=== PATIENT | female | born 2000 | race Hispanic/Latino ===

== ENCOUNTER 2024-06-06 05:32 | Inpatient (IN) | payer MEDICAID, OTHER, SELFPAY ==
[2024-06-06 06:29] VITALS: BMI 35.4
[2024-06-06] MEDS ORDERED: hydrALAZINE 20 MG/ML VIAL SLOW IVP PRN (07:37)
[2024-06-06] MEDS ORDERED: Ondansetron PF 4 MG/2 ML Vial IVP PRN (07:37)
[2024-06-06] MEDS ORDERED: Famotidine/PF 20 mg/2ml Vial SLOW IVP PRN (07:37)
[2024-06-06] MEDS ORDERED: Bicitra 30 ML UDCUP PO PRN (07:37)
[2024-06-06] MEDS ORDERED: Promethazine HCl 25 MG/ML VIAL IM PRN ×2 (07:37→11:05)
[2024-06-06] MEDS ORDERED: CEFAZOLIN 2 GM in Sodium Chloride 0.9% 100 ML IVPB SCH (07:45)
[2024-06-06] MEDS: Oxytocin 30 units/NS 500 ML 500 ML IV SCH (08:05)
[2024-06-06 08:22] LABS: Hematocrit 28.8 % (34.9-44.5); Hemoglobin 9.8 g/dL (12.0-15.5); Mean Corpuscular Hemoglobin 27.7 pg (27.0-33.0); Mean Corpuscular Volume 81.4 fL (81.6-98.3); Mean Platelet Volume 13.9 fL (7.4-10.4); Platelet Count 235 10x3/uL (150-450); RBC Distribution Width 13.6 % (11.5-14.5); Red Blood Cell (RBC) Count 3.54 10x6/uL (3.90-5.03); White Blood Cell (WBC) Count 6.54 10x3/uL (3.5-10.5)
[2024-06-06 08:33] LABS: Syphilis Antibody Nonreactive (Nonreactive); Syphilis Antibody Index 0.04 S/CO (<1.00 Non-Reactive)
[2024-06-06 08:34] LABS: HBsAg Index 0.25 S/CO (0-0.99); Hep B Surf Ag - L&D Non-Reactive S/CO (NonReactive)
[2024-06-06] MEDS ORDERED: fentaNYL/Ropivacaine Epidural 100 ML ONE (10:40)
[2024-06-06] MEDS ORDERED: Naloxone HCl 0.4 mg/ml Vial IVP PRN ×2 (11:05)
[2024-06-06] MEDS ORDERED: Lactated Ringer's 500 ML IV PRN (11:05)
[2024-06-06] MEDS ORDERED: diphenhydrAMINE 50 MG/ML VIAL IVP PRN (11:05)
[2024-06-06] MEDS ORDERED: Moisturizing Cream (Eucerin) 113 GM JAR TOP PRN (11:05)
[2024-06-06] MEDS ORDERED: Communication Order-Pharmacy FS SCH (11:15)
[2024-06-06] MEDS: fentaNYL 2 mcg/Ropivacaine 0.2% Epidural 100 ML CADD EPIDURAL SCH (11:53)
[2024-06-06] MEDS: ePHEDrine Sulfate 50 MG/10 ML VIAL SLOW IVP PRN (12:30)
[2024-06-06 17:48] LABS: Analyzer IN Cardio CS NICU; RapidComm Collect By NICU
[2024-06-06 17:50] LABS: Analyzer IN Cardio CS NICU; pH (Cord, venous) 7.391 (7.250-7.350)
[2024-06-06] MEDS: Acetaminophen 325 MG TAB PO PRN (19:06)
[2024-06-06] MEDS: Misoprostol 200 MCG TAB PR PRN (19:25)
[2024-06-06] MEDS: Methylergonovine 0.2 MG/ML VIAL IM PRN (20:23)
[2024-06-06] MEDS: Diphenoxylate HCl/Atropine Tablet PO PRN (20:57)
[2024-06-06] MEDS: Carboprost 250 MCG/ML AMP IM PRN (20:58)
[2024-06-06] MEDS: Tranexamic Acid 1,000 MG/10 ML VIAL IVP PRN (21:06)
[2024-06-06] MEDS: Morphine 4 MG/ML VIAL SLOW IVP SCH (21:23)
[2024-06-06] MEDS: Ondansetron PF 4 MG/2 ML Vial IVP PRN (21:28)
[2024-06-06] MEDS: Ibuprofen 800 MG TAB PO SCH (21:53)
[2024-06-06 21:57] LABS: PTT 29.2 sec (22.0-33.0); Prothrombin Time 10.7 sec (9.5-12.1)
[2024-06-06 22:15] LABS: #Basophils 0.05 10x3/uL (0.0-0.2); #Eosinophils Less than 0.03 10x3/uL (0.0-0.5); #Monocytes 1.76 10x3/uL (0.0-1.1); #Neutrophils 14.68 10x3/uL (1.5-8.4); %Basophils 0.3 % (0.0-2.0); %Lymphocytes 10.5 % (18.0-47.0); %Monocytes 9.5 % (0.0-10.0); %Neutrophils 79.2 % (40.0-75.0); Hematocrit 29.5 % (34.9-44.5); Mean Corpuscular HGB CONC 33.9 g/dL (32.0-36.0); Mean Corpuscular Hemoglobin 27.4 pg (27.0-33.0); Mean Corpuscular Volume 80.8 fL (81.6-98.3); Mean Platelet Volume 13.9 fL (7.4-10.4); Platelet Count 215 10x3/uL (150-450); RBC Distribution Width 13.7 % (11.5-14.5); Red Blood Cell (RBC) Count 3.65 10x6/uL (3.90-5.03); White Blood Cell (WBC) Count 18.52 10x3/uL (3.5-10.5)
[2024-06-07] MEDS ORDERED: Lanolin Ointment 7 GM TUBE TOP PRN (01:38)
[2024-06-07] MEDS ORDERED: Benzocaine-Menthol 82.5 ML CAN TOP PRN (01:38)
[2024-06-07] MEDS ORDERED: Bisacodyl 10 MG SUPP PR PRN (01:38)
[2024-06-07] MEDS ORDERED: Promethazine HCl 25 MG/ML VIAL IM PRN (01:38)
[2024-06-07] MEDS ORDERED: Ondansetron PF 4 MG/2 ML Vial IVP PRN (01:38)
[2024-06-07] MEDS ORDERED: diphenhydrAMINE 25 MG CAP PO PRN (01:38)
[2024-06-07] MEDS ORDERED: Boostrix 0.5 ML (Tdap) VIAL (>/=7 yrs of age) IM ONE (01:38)
[2024-06-07] MEDS ORDERED: HYDROcodone/Acetaminophen 5/325 mg Tablet PO PRN (01:38)
[2024-06-07] MEDS ORDERED: hydrALAZINE 20 MG/ML VIAL SLOW IVP PRN (01:38)
[2024-06-07] MEDS ORDERED: Milk Of Magnesia 30 ML UDCUP PO PRN (01:38)
[2024-06-07] MEDS: Docusate 100 MG CAP PO SCH ×2 (02:12→08:24)
[2024-06-07] MEDS: Ibuprofen 800 MG TAB PO SCH (05:52)
[2024-06-07] MEDS: Ferrous Sulfate 325 MG TAB PO SCH (08:22)
[2024-06-07] MEDS: Prenatal Vitamin 1 TAB PO SCH (08:23)
[2024-06-07] MEDS ORDERED: ePHEDrine Sulfate 50 MG/10 ML VIAL ONE (09:00)
[2024-06-07] MEDS ORDERED: Bupivacaine HCl 0.5%/Epinephrine 1:200,000/PF 30 ml Vial ONE (09:00)
[2024-06-07 16:51] VITALS: BP 96/55; TEMP 98.2
== END 2024-06-07 19:30 | disposition home or self-care (01) | DRG 807 ==
LOC: CSHLD 05:32 → CSHPED 06-07 01:35
PROVIDERS: ADMIT Family Medicine; ATTEND Family Medicine
PROC: 10907ZC Drainage of Amniotic Fluid, Therapeutic from Products of Conception, Via Natural or Artificial Opening (ICD-10-PCS; principal; 2024-06-06)
PROC: 10E0XZZ Delivery of Products of Conception, External Approach (ICD-10-PCS; 2024-06-06)
DX: O48.0 Post-term pregnancy (principal); Z37.0 Single live birth; Z3A.40 40 weeks gestation of pregnancy; O26.53 Maternal hypotension syndrome, third trimester; O69.81X0 Labor and delivery complicated by cord around neck, without compression, not applicable or unspecified; O66.0 Obstructed labor due to shoulder dystocia
CPT/HCPCS: 36415; 51702; 82805; 85027; 85384; 85610; 85730; 86780; 86850; 86900; 86901; 87340; J2210; J2270; J2405; J2590; J3490